=== PATIENT | male | born 1945 | race Caucasian/White ===

== ENCOUNTER 2022-11-06 12:33 | Emergency (ER) | payer OTHER, MEDICARE ==
[~2022-11-06] VITALS: Ht 172.7 cm; Wt 85.9 kg
[~2022-11-06 12:33] MED LIST: ASPIRIN EC81 MG PO; FISH OIL 1,0001 EAC2 NG; IPRATROPIU0.2 MG/1 M INH; PULMICORT FLE180 MCG INH; TAMSULOSIN HCL0.4 MG PO
[2022-11-06 13:50] LABS: INFLUENZA B NAA NEGATIVE (NEGATIVE); RESPIRATORY SYNCYTIAL VIR NAA NEGATIVE (NEGATIVE)
[2022-11-06 14:03] LABS: BASOPHILS 0.9 % (0-2); EOSINOPHILS 0.1 % (0-6); HEMATOCRIT 42.4 % (35.0-50.0); LYMPHOCYTES 27.8 % (24-44); MCH 28.4 (27-36); MCV 86.1 fl (81-99); MONOCYTES 11.6 % (0-12); NEUTROPHILS 59.6 % (39-80); PLATELET COUNT 217 K/uL (140-440); RBC 4.93 M/ul (4.3-5.7); RDW 14.1 (10.5-15.0)
[2022-11-06 14:16] LABS: ANION GAP 12.8 (7-21); BUN/CREATININE RATIO 12.22 (6.0-28.6); CALCIUM 8.9 mg/dL (8.5-10.1); CREATININE, SERUM 0.9 mg/dL (0.70-1.30); POTASSIUM 3.8 mmol/L (3.5-5.1)
[2022-11-06] MEDS ORDERED: PAXLOVID 300-11 EACH PO (14:41)
[2022-11-06 15:07] VITALS: BP 161/79
== END 2022-11-06 15:07 | disposition home or self-care (01) ==
LOC: ED 12:33
PROVIDERS: Emergency Medicine
DX: U07.1 COVID-19 (principal); Z79.82 Long term (current) use of aspirin; Z79.899 Other long term (current) drug therapy
CPT/HCPCS: 36415; 80048; 85025; 87502; 99283; U0002

== ENCOUNTER 2024-04-16 17:00 | Emergency (ER) | payer OTHER ==
[~2024-04-16] VITALS: Ht 172.7 cm; Wt 81.0 kg
[~2024-04-16 17:00] MED LIST changes: +PAXLOVID 300-11 EACH PO
[2024-04-16] MEDS ORDERED: NORVASC5 MG (18:17)
[2024-04-16] MEDS ORDERED: PROSCAR5 MG (18:18)
[2024-04-16] MEDS ORDERED: VITAMIN D350 MC5 (18:18)
[2024-04-16] MEDS ORDERED: NICOTINE GUM2 MG (18:19)
[2024-04-16] MEDS ORDERED: ADVAIR 250-501 EACH (18:19)
[2024-04-16] MEDS ORDERED: ZOCOR20 MG (18:19)
[2024-04-16] MEDS ORDERED: TYLENOL EXTRA500 MG (18:19)
[2024-04-16] MEDS ORDERED: KETOROLAC TROMETHAMINE 60 MG/2 ML VIAL IM ONE (20:15)
[2024-04-16] MEDS ORDERED: HYDROCODON-ACE1 EA10 PO (21:22)
[2024-04-16] MEDS ORDERED: ONDANSETRON ODT8 MG PO (21:22)
[2024-04-16 21:25] VITALS: BP 123/51
[2024-04-16] MEDS ORDERED: HYDROCODONE BIT/ACETAMINOPHEN 5/325 MG 1 TAB HOME.PACK PO ONE (21:30)
[2024-04-16] MEDS ORDERED: ONDANSETRON 4 MG HOME.PACK SL ONE (21:30)
--- NOTE | 2024-04-16 22:15 | EKG ---
[facility] [address] [place] [address] Signed Sinus rhythm with premature atrial complexes Otherwise normal ECG No previous ECGs available Confirmed by Freddy Rea MD () on 04/16/2024 10:14:44 PM Electronically Signed By: FREDDY REA MD 04/16/242214 PATIENT NAME: KALEY HOBBS Electrocardiogram DATE OF : 43 PHYSICIAN: FREDDY REA MD REPORT #: [id number] REPORT IS CONFIDENTIAL AND NOT TO BE RELEASED WITHOUT AUTHORIZATION
== END 2024-04-16 21:45 | disposition home or self-care (01) ==
LOC: ED 17:00
DX: C41.9 Malignant neoplasm of bone and articular cartilage, unspecified (principal); J44.89 Other specified chronic obstructive pulmonary disease; Z79.51 Long term (current) use of inhaled steroids; Z79.899 Other long term (current) drug therapy
CPT/HCPCS: 71045; 71250; 93005; 93010; 96372; 99284-25; A9270; J1885

== ENCOUNTER 2024-06-06 09:44 | Emergency (ER) | payer OTHER, MEDICARE ==
[~2024-06-06] VITALS: Ht 172.7 cm; Wt 81.0 kg
[~2024-06-06 09:44] MED LIST changes: +ADVAIR 250-501 EACH; +HYDROCODON-ACE1 EA10 PO; +NICOTINE GUM2 MG; +NORVASC5 MG; +ONDANSETRON ODT8 MG PO; +PROSCAR5 MG; +TYLENOL EXTRA500 MG; +VITAMIN D350 MC5; +ZOCOR20 MG
[2024-06-06] MEDS ORDERED: LIDOCAINE 2% VISCOUS 6 ML SYR TOP ONE (10:00)
[2024-06-06] MEDS ORDERED: Methylnaltrexone Bromide 12 MG/0.6 ML VIAL SUB-Q ONE (10:00)
[2024-06-06 10:51] LABS: BILIRUBIN, URINE POSITIVE (negative); BLOOD/HGB, URINE NEGATIVE (Negative); KETONE, URINE SMALL (Negative); LEUK ESTERASE, URINE NEGATIVE (negative); NITRITE, URINE NEGATIVE (negative)
[2024-06-06 10:58] LABS: BACTERIA, URINE NONE SEEN /hpf (negative); CASTS, URINE NONE SEEN \\lpf; CRYSTALS, URINE NONE SEEN (0-1+); EPITHELIAL CELLS, URINE SQUAMOUS 1+ /lpf (0-1+); RED BLOOD CELLS, URINE 0-1 /hpf (0-5); REFLEX CULTURE, URINE No (No)
[2024-06-06 10:59] LABS: COLLECTION TYPE, URINE CATH
[2024-06-06 11:49] VITALS: BP 154/64
== END 2024-06-06 11:45 | disposition home or self-care (01) ==
LOC: ED 09:44
PROVIDERS: Emergency Medicine
DX: K59.00 Constipation, unspecified (principal); R33.9 Retention of urine, unspecified; J44.89 Other specified chronic obstructive pulmonary disease; Z79.51 Long term (current) use of inhaled steroids; Z79.899 Other long term (current) drug therapy
CPT/HCPCS: 51702; 81001; 99283; A4311; J2212